=== PATIENT | male | born 1945 | race Hispanic/Latino ===

== ENCOUNTER 2018-03-05 12:08 | Observation (INO) | payer MEDICARE ==
[2018-03-05 12:08] VITALS: BMI 28.5
--- NOTE | 2018-03-05 13:15 | ED PDOC ---
Arrival/HPI - General Historian: Patient - History of Present Illness Narrative History of Present Illness (Text): 03/05/18 13:10 72 y/o male, pmh including htn/dm/bph, nkda, last echo 01/2015 with EF 60%, c/o on and off coughing x 3 weeks. Pt. stated that he has been coughing on and off for the past 3 weeks, no chest pain or shortness of breath, seen by the pmd about 2 days ago and started levaquin, no night sweat, no rash, no numbness or tingling, no palpitation, no other medical or psychological complaints. Past Medical History - Provider Review Nursing Documentation Reviewed: Yes - Tetanus Immunization Tetanus Immunization: Unknown, >10 years Ago - Past Medical History Past Medical History: Unable to Obtain - Cardiac Hx Pacemaker: No - Pulmonary Hx Sleep Apnea: Yes - Neurological Hx Paralysis: No - HEENT Hx Deafness: Yes - Endocrine/Metabolic Hx Diabetes Mellitus Type 2: Yes - Hematological/Oncological Hx Blood Transfusions: No Hx Blood Transfusion Reaction: No - Musculoskeletal/Rheumatological Hx Musculoskeletal Disorders: Yes - Genitourinary/Gynecological Hx Genitourinary Disorders: (retention) - Psychiatric Hx Emotional Abuse: No Hx Physical Abuse: No Hx Substance Use: No - Past Surgical History Past Surgical History: Unable to Obtain - Surgical History Other/Comment: repair right hand laceration today 09/22/14 - Anesthesia Hx Anesthesia Reactions: No Hx Malignant Hyperthermia: No - Suicidal Assessment Feels Threatened In Home Enviroment: No Family/Social History - Physician Review Nursing Documentation Reviewed: Yes Family/Social History: Unknown Family HX Smoking Status: Never Smoked Hx Alcohol Use: No Hx Substance Use: No Hx Substance Use Treatment: No Allergies/Home Meds Allergies/Adverse Reactions: Allergies No Known Allergies Allergy (Verified 03/05/18 14:41) Home Medications: Home Meds Medication Instructions Recorded Confirmed Ergocalciferol (Vitamin D2) 50,000 iu PO QWK 09/22/14 03/05/18 [Vitamin D2] Losartan [Cozaar] 25 mg PO DAILY 09/22/14 03/05/18 MetFORMIN [glucoPHAGE] 1,000 mg PO DAILY 09/22/14 03/05/18 Ropinirole HCl [Ropinirole ER] 4 mg PO TID 09/22/14 03/05/18 Tamsulosin [Flomax] 0.4 mg PO DAILY 09/22/14 03/05/18 GlipiZIDE [Glucotrol] 2.5 mg PO DAILY 01/12/15 03/05/18 Carbidopa/Levodopa 50/200 CR 6 tab PO DAILY 03/05/18 03/05/18 [Sinemet] Gabapentin [Neurontin] 100 mg PO TID 03/05/18 03/05/18 Meloxicam [Mobic] 15 mg PO DAILY 03/05/18 03/05/18 Review of Systems - Review of Systems Constitutional: absent: Fatigue, Fevers Eyes: absent: Vision Changes ENT: absent: Hearing Changes Respiratory: Cough, Sputum. absent: SOB, Wheezing Cardiovascular: absent: Chest Pain Gastrointestinal: absent: Abdominal Pain, Diarrhea, Nausea, Vomiting Musculoskeletal: absent: Arthralgias Skin: absent: Rash, Pruritis Neurological: absent: Headache, Dizziness Psychiatric: absent: Anxiety, Depression Physical Exam Vital Signs Reviewed: Yes Temperature: Afebrile Blood Pressure: Hypertensive Pulse: Regular Respiratory Rate: Normal Appearance: Positive for: Non-Toxic, Ill-Appearing Pain Distress: None Mental Status: Positive for: Alert and Oriented X 3 - Systems Exam Head: Present: Atraumatic, Normocephalic Pupils: Present: PERRL Extroacular Muscles: Present: EOMI Conjunctiva: Present: Normal Mouth: Present: Moist Mucous Membranes Neck: Present: Normal Range of Motion Respiratory/Chest: Present: Clear to Auscultation, Good Air Exchange, Rhonchi. No: Respiratory Distress, Accessory Muscle Use, Wheezes, Decreased Breath Sounds, Rales, Retracting, Tachypneic, Tender to Palpation Cardiovascular: Present: Regular Rate and Rhythm, Normal S1, S2, Other (no pedal edema). No: Murmurs Abdomen: No: Tenderness, Distention, Peritoneal Signs, Rebound, Guarding Back: Present: Normal Inspection Upper Extremity: Present: Normal Inspection. No: Cyanosis, Edema Lower Extremity: Present: Normal Inspection. No: Edema Neurological: Present: GCS=15, CN II-XII Intact, Speech Normal, Motor Func Grossly Intact, Gait Normal, Memory Normal Skin: Present: Warm, Dry, Normal Color. No: Rashes Psychiatric: Present: Alert, Oriented x 3, Normal Insight, Normal Concentration Medical Decision Making ED Course and Treatment: 03/05/18 13:17 -labs -chest xray -Observe and reassess 03/05/18 14:50 -Chest xray Minimal linear infiltrates of both lung bases which may represent atelectasis or early pneumonia -Labs show no acute findings except BUN 28 (IVF ordered) -Mg within normal limit -Trop is negative after 24 hours. -I discussed the antibiotic choices and the patient declined fluoroquinolones due to the side effect, so I will placed him on rocephine and zithromax. -IV rocephine and azithromycin 500mg ordered. -All labs/radiology results discussed, he and the family agreed to be admitted. -Based on CURB 65 criteria, he would need admission. He looks fatigue and tired, sick looking now. 03/05/18 15:07 -I spoke to the pmd Dr. Celis, discussed about the case/labs/radiology, he agreed on this admission and agreed to admit to his service. - RAD Interpretation Radiology Orders: Date of service: 03/05/2018 HISTORY: cough x 3 weeks COMPARISON: No prior. TECHNIQUE: Chest PA and lateral FINDINGS: LUNGS: Minimal linear infiltrates of both lung bases which may represent atelectasis or early pneumonia PLEURA: No significant pleural effusion identified. No pneumothorax apparent. CARDIOVASCULAR: Aortic calcification Normal cardiac size. No pulmonary vascular congestion. OSSEOUS STRUCTURES: No significant abnormalities. VISUALIZED UPPER ABDOMEN: Normal. OTHER FINDINGS: None. 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 Interpreted by ED Physician: Yes Type: 12 lead EKG - PA / STENOGRAPHIC COURT REPORTER / Resident Statement MD/DO has reviewed & agrees with the documentation as recorded. Disposition/Present on Arrival - Present on Arrival Any Indicators Present on Arrival: No History of DVT/PE: No History of Uncontrolled Diabetes: No Urinary Catheter: No History of Decub. Ulcer: No History Surgical Site Infection Following: None - Disposition Have Diagnosis and Disposition been Completed?: Yes Diagnosis: Pneumonia, Dehydration, Fatigue, Failure of outpatient treatment Disposition: HOSPITALIZED Disposition Time: 14:50 Patient Plan: Admission, Observation Patient Problems: Current Active Problems Problem Status Onset Pneumonia Acute Dehydration Acute Fatigue Acute Failure of outpatient treatment Acute Condition: STABLE Referrals: Steve Heaton MD [Primary Care Provider] - Follow up with primary
[2018-03-05 13:57] VITALS: O2SAT 96
[2018-03-05 14:07] LABS: BASO # 0.03 K/mm3 (0.0-2.0); BASO % 0.3 % (0.0-3.0); EOS # 0.2 (0.0-0.7); EOS % 2.4 % (1.5-5.0); GRAN # 7.3 (1.4-6.5); GRAN % 77.7 % (50.0-68.0); HEMOGLOBIN 13.4 g/dL (14.0-18.0); LYMPH # 0.9 (1.2-3.4); LYMPH % 9.5 % (22.0-35.0); MEAN CELL VOLUME 94.2 fl (80.0-105.0); MEAN CORPUSCULAR HEMOGLOBIN 31.3 pg (25.0-35.0); MEAN CORPUSCULAR HGB CONC 33.3 g/dl (31.0-37.0); MEAN PLATELET VOLUME 10.3 fl (7.0-11.0); MONO % 10.1 % (1.0-6.0); RBC 4.28 10^6/uL (3.5-6.1); RED CELL DISTRIBUTION WIDTH 14.4 % (11.5-14.5); WHITE BLOOD COUNT 9.4 10^3/uL (4.5-11.0)
--- NOTE | 2018-03-05 14:07 | RAD ---
Date of service: 03/05/2018 HISTORY: cough x 3 weeks COMPARISON: No prior. TECHNIQUE: Chest PA and lateral FINDINGS: LUNGS: Minimal linear infiltrates of both lung bases which may represent atelectasis or early pneumonia PLEURA: No significant pleural effusion identified. No pneumothorax apparent. CARDIOVASCULAR: Aortic calcification Normal cardiac size. No pulmonary vascular congestion. OSSEOUS STRUCTURES: No significant abnormalities. VISUALIZED UPPER ABDOMEN: Normal. OTHER FINDINGS: None. IMPRESSION: Minimal linear infiltrates of both lung bases which may represent atelectasis or early pneumonia
[2018-03-05] MEDS ORDERED: Azithromycin 250 MG in Sodium Chloride 0.9% 250 ML IVPB STA (14:12)
[2018-03-05] MEDS ORDERED: cefTRIAXone 1 gm 1 GM/100 ML BAG IVPB STA (14:12)
[2018-03-05 14:14] LABS: ALB/GLOB RATIO 1.5 (1.1-1.8); ALBUMIN 4.3 g/dL (3.0-4.8); ALT/SGPT 11 U/L (7-56); AST/SGOT 19 U/L (17-59); BLOOD UREA NITROGEN 28 mg/dL (7-21); CALCIUM 9.5 mg/dL (8.4-10.5); GFR NON-AFRICAN AMERICAN > 60
[2018-03-05] MEDS ORDERED: Sodium Chloride 0.9% 1,000 ML IV STA (14:23)
[2018-03-05 14:28] LABS: B-TYPE NATRIURETIC PEPTIDE 70.4 pg/mL (0-450); TROPONIN I < 0.01 ng/mL
[2018-03-05 17:03] VITALS: RESP 16; TEMP 98
[2018-03-05] MEDS: Carbidopa/Levodopa 50/200 CR PO SCH (21:18)
[2018-03-05] MEDS ORDERED: Influenza Vaccine 60 mcg/0.5 mL SYR (4YR UP) IM ONE (22:46)
[2018-03-05] MEDS ORDERED: Pneumococcal 23-Valent Vaccine IM ONE (22:46)
[2018-03-06 07:00] LABS: HEMOGLOBIN 13.2 g/dL (14.0-18.0); MEAN CELL VOLUME 93.4 fl (80.0-105.0); MEAN CORPUSCULAR HEMOGLOBIN 31.3 pg (25.0-35.0); MEAN CORPUSCULAR HGB CONC 33.5 g/dl (31.0-37.0); MEAN PLATELET VOLUME 10.3 fl (7.0-11.0); RBC 4.22 10^6/uL (3.5-6.1); RED CELL DISTRIBUTION WIDTH 14.2 % (11.5-14.5); WHITE BLOOD COUNT 7.7 10^3/uL (4.5-11.0)
[2018-03-06] MEDS: Carbidopa/Levodopa 50/200 CR PO SCH (09:43)
[2018-03-06 09:46] VITALS: BP 127/72; PULSE 78
[2018-03-06] MEDS ORDERED: cefTRIAXone 1 gm 1 GM/100 ML BAG IVPB SCH (10:30)
--- NOTE | 2018-03-06 10:40 | CARD ---
APPROVED REPORT Date of service: 03/05/2018 EKG Measurement Heart [id number] CT [id number] <Conclusion> Sinus rhythm with premature atrial complexes Otherwise normal ECG
--- NOTE | 2018-03-07 02:06 | HP ---
DATE OF EXAM: 03/06/2018 CHIEF COMPLAINT: Fatigue and cough. HISTORY OF PRESENT ILLNESS: This is a 72-year-old man I met approximately 1 month ago in the office. He was in for routine physical with his and was feeling well. Last week, he presented to the office while I was away, seen by a covering physician, Dr. John Heaton for cough with wet phlegm and prescribed Levaquin 500 mg daily. Unfortunately, the pharmacy did not fill the prescription, the patient did not get his medicine, he continued to cough for the remaining 4 or 5 day and came to the emergency room. In the ER, he did not appear septic or toxic. His lungs were quite clear. His white count was normal. He was afebrile, but the chest x-ray raised the question of bibasilar infiltrate and so call was placed to me in the late afternoon on and the patient was admitted. PAST MEDICAL HISTORY: Negative for hypertension, cholesterol, tuberculosis, asthma, seizures, COPD, gout, TIA, CVA, AL, CAD, or cancers with any type. He has diabetes for many years and is being treated by a neurologist for restless legs syndrome. He was hospitalized for dog bite in the distant past and was hospitalized in [facility] in 2007. ALLERGIES: HE HAS NO KNOWN ALLERGIES. SOCIAL HISTORY: Does not smoke, never did. Does not drink alcohol. Drinks two cups of coffee per day. He retired in 2009 from [employer] in [place], [place]. 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 Templeton for his restless legs syndrome and his urologist is Dr. Nash. HOME MEDICATIONS: Include losartan 25 mg once a day, metformin 500 mg every day, Neurontin 100 mg t.i.d., meloxicam 15 mg every day, glipizide ER 2.5 mg daily, levodopa/carbidopa 50/250 two pills three times a day, tamsulosin 0.4 mg daily, 2 mg daily, vitamin D3 1000 units daily, and Centrum, multivitamins 1 a day. REVIEW OF SYSTEMS: Negative, but for symptoms of restless legs. PHYSICAL EXAMINATION: GENERAL: The patient is seen this Monday, in room 368, bed 1. He is partially dressed, ambulating about the room, comfortable and in no acute distress. His cough seemed to have subsided late yesterday. The nurses say he has been ambulating without difficulty and not coughing. He feels well and is hoping to go home. HEAD: Unremarkable. Conjunctivae pink. Mucous membranes moist. NECK: Supple without masses. No JVD. At present, thyroid is not palpable. LUNGS: Clear to auscultation and percussion. No rales. No wheezes. No rhonchi. HEART: Regular, not tachycardic. ABDOMEN: Soft. Nontender. EXTREMITIES: Show no edema. IMPRESSION: 1. Acute bronchitis with faint basilar infiltrates, rule out pneumonia versus chronic increased interstitial markings with an underlying acute bronchitis. 2. Hypertension. 3. Restless legs syndrome. 4. Benign prostatic hypertrophy. PLAN: The patient was seen this morning, comfortable and stable. Labs were reviewed. White count remains normal and he remains afebrile. He is comfortable and ready for discharge to home. Therefore, I will discharge the patient to home to follow up with us in the office later this week. I called his pharmacy to be filled, they filled his Levaquin 500 mg daily for the next 3 to 5 days. He received the dose of Rocephin yesterday and will get an additional dose today as well as azithromycin. We will give him an additional dose of Rocephin today and discharged to home. FINAL DISCHARGE DIAGNOSES: 1. Bronchitis. 2. Bilateral bibasilar infiltrate, rule out acute bacterial infiltrate versus chronic interstitial markings. 3. Hypertension. 4. Diabetes. 5. Restless legs syndrome. 6. Benign prostatic hypertrophy. Steve Heaton MD [facility]
== END 2018-03-06 14:03 | disposition home or self-care (01) ==
LOC: ED 12:08 → ERH 15:08 → 3RNO 17:51
PROVIDERS: ADMIT Internal Medicine; ATTEND Internal Medicine
DX: J18.9 Pneumonia, unspecified organism (principal); J20.9 Acute bronchitis, unspecified; E86.0 Dehydration; E11.9 Type 2 diabetes mellitus without complications; G25.81 Restless legs syndrome; G47.30 Sleep apnea, unspecified; H91.90 Unspecified hearing loss, unspecified ear; I10 Essential (primary) hypertension; N40.0 Benign prostatic hyperplasia without lower urinary tract symptoms; Z79.1 Long term (current) use of non-steroidal anti-inflammatories (NSAID); Z79.84 Long term (current) use of oral hypoglycemic drugs; Z79.899 Other long term (current) drug therapy
CPT/HCPCS: 36415; 71046; 80053; 83735; 83880; 84484; 85025; 85027; 87040; 93005; 96365; 96367; 99284; G0378; J0456; J0696; J7030